=== PATIENT | female | born 1970 | race Caucasian/White ===

== ENCOUNTER 2016-04-21 10:59 | Observation (INO) | payer OTHER ==
[2016-04-16 14:20] VITALS: Ht 162.6 cm; Wt 76.2 kg
[~2016-04-21] VITALS: Ht 162.6 cm; Wt 76.2 kg
[2016-04-21] VITALS (22 sets, daily range): BP systolic 103–122; RESP 12–18; TEMP 97.2–99.4
[~2016-04-21 10:59] MED LIST: DILAUDID 1 MG/ML AMP IV PRN; GLYCOPYRROLATE 0.2 MG/ML VIAL IV ONE; LACT RINGERS 1,000 ML IV SCH; LIDOCAINE 1% BUFFERED 1 ML SYR INTRADERM PRN; MEPERIDINE 25 MG/ML IV PRN; MIDAZOLAM 2 MG/2 ML INJ IV ONE; MORPHINE 2 MG/ML SYR IV PRN; MORPHINE 4 MG/ML SYR IV PRN; ONDANSETRON 4 MG VIAL IV PRN; OXYCODONE 5 MG TAB PO PRN
[2016-04-21] MEDS ORDERED: SODIUM CHLORIDE 0.45% 1,000 ML IV SCH (11:00)
[2016-04-21] MEDS ORDERED: SALINE FLUSH 10 ML FLUSH PRN (11:00)
[2016-04-21] MEDS ORDERED: MORPHINE 2 MG/ML SYR IV PRN (11:00)
[2016-04-21] MEDS ORDERED: MEPERIDINE 25 MG/ML ONE (11:46)
[2016-04-21] MEDS ORDERED: DILAUDID 1 MG/ML AMP ONE (11:47)
[2016-04-21] MEDS: ONDANSETRON 4 MG VIAL IV PRN ×2 (13:21→17:38)
[2016-04-21] MEDS ORDERED: LIDOCAINE/EPI 1% MDV 20 ML INFILTRATE ONE (13:38)
[2016-04-21] MEDS ORDERED: LIDOCAINE 2% SYR 5 ML IV ONE (13:46)
[2016-04-21] MEDS ORDERED: GLYCOPYRROLATE 0.2 MG/ML VIAL IV ONE (13:46)
[2016-04-21] MEDS ORDERED: FENTANYL 100 MCG/2 ML AMP IV ONE (13:46)
[2016-04-21] MEDS ORDERED: PROPOFOL 50ML PER ML IV ONE (13:46)
[2016-04-21] MEDS ORDERED: ONDANSETRON 4 MG VIAL IV PUSH ONE (13:46)
[2016-04-21] MEDS ORDERED: DEXAMETHASONE 4 MG/ML VIAL IV ONE (13:46)
[2016-04-21] MEDS ORDERED: DILAUDID 1 MG/ML AMP IV ONE (13:46)
[2016-04-21] MEDS ORDERED: NEOSTIGMINE 10 MG/10 ML VIAL IV ONE (13:46)
[2016-04-21] MEDS ORDERED: MISSING DOSE XX ONE ×2 (14:25→17:35)
[2016-04-21] MEDS: PROMETHAZINE 25 MG SUPP RECTAL PRN ×2 (15:08→18:52)
[2016-04-21] MEDS: HYDROGEN PEROXIDE 3% 480 ML TOPICAL SCH ×2 (17:26→21:00)
[2016-04-21] MEDS: BACITRACIN OINT TOPICAL SCH ×2 (17:27→21:00)
[2016-04-21] MEDS: VIT D PO SCH ×2 (17:51→21:00)
[2016-04-21] MEDS: CALCIUM PO SCH ×2 (17:51→21:00)
[2016-04-21] MEDS: MORPHINE 4 MG/ML SYR IV PRN (18:53)
[2016-04-22] MEDS: MORPHINE 4 MG/ML SYR IV PRN (03:05)
[2016-04-22 03:37] VITALS: BP_SYST 106; RESP 16; TEMP 98.4
[2016-04-22 07:32] VITALS: BP_SYST 110; RESP 18; TEMP 97.8
[2016-04-22] MEDS: HYDROGEN PEROXIDE 3% 480 ML TOPICAL SCH (09:00)
[2016-04-22] MEDS: BACITRACIN OINT TOPICAL SCH (09:00)
[2016-04-22] MEDS: CALCIUM PO SCH (10:26)
[2016-04-22] MEDS: VIT D PO SCH (10:26)
[2016-04-22 11:52] VITALS: BP_SYST 109; RESP 16; TEMP 97.7
[2016-04-22 14:24] VITALS: BP_SYST 109; RESP 16; TEMP 97.7
== END 2016-04-22 13:30 | disposition home or self-care (01) ==
LOC: SURG 10:59 → SDS 11:00 → ENPENDDIS 11:00 → SURG 11:07 → 3S 12:24
PROVIDERS: ADMIT Otolaryngology; ATTEND Otolaryngology
DX: C73 Malignant neoplasm of thyroid gland (principal)
CPT/HCPCS: 71020; 82310; 83970; 84439; 84443; 84703; 85025; 85610; 85730; 88307; 88331; 94620; 94762; 94799